=== PATIENT | female | born 1985 | race American Indian/Alaskan Native ===

== ENCOUNTER 2020-09-01 09:14 | Emergency (ER) | payer MEDICAID ==
[2020-09-01 09:25] VITALS: BP 101/61
--- NOTE | 2020-09-01 09:31 | Emergency Department Report ---
ED Abdominal Pain HPI - General Chief Complaint: Abdominal Pain Stated Complaint: ABD PAIN/EAR IRRITATION Time Seen by Provider: 09/01/20 09:28 Source: patient Mode of arrival: Ambulatory Limitations: No Limitations - History of Present Illness Initial Comments: 35-year-old female presents to the ER today with complaints of right ear pain, low abdominal pain and vaginal discharge. Patient states that she has been having intermittent low abdominal pain radiating into her lower back for the past 2 months. She states that she has never had this abdominal pain evaluated either in the ER or by her primary care doctor or [facility] since it started because she has not had any insurance. She states that the real reason she is here is because she has been having vaginal discharge for 4 days with abdominal pain in the right ear pain. She states that she is had the same sexual partner but unprotected sexual intercourse. Her last menstrual cycle was July 2020. She states that she is not sure if she could be , and has not taken a home test. She is not on any control. She denies any nausea, vomiting or any bowel changes. She denies any UTI symptoms. She is status post C-sections in the past as well as ovarian cyst removal. She states the right ear pain started about 2 days ago. She reports rhinorrhea nasal congestion but denies any drainage from the ear. She denies any fever or chills. She denies any ear injury. MD Complaint: abdominal pain, other (Right ear pain; vaginal discharge) - Related Data Previous Rx's Medication Instructions Recorded Last Taken Type Azithromycin [Zithromax Z-CAMMY] 250 mg PO DAILY #1 pack 09/01/20 Unknown Rx DOXYCYCLINE Hyclate [Vibramycin 100 mg PO Q12HR #14 capsule 09/01/20 Unknown Rx CAP] Fluconazole [Diflucan TAB] 200 mg PO QDAY #1 tablet 09/01/20 Unknown Rx metroNIDAZOLE [metroNIDAZOLE 1 applicatio VG QHS 5 Days #5 09/01/20 Unknown Rx VAGINAL 0.75% gel] gel.w.appl Allergies Allergy/AdvReac Type Severity Reaction Status Date / Time Penicillins Allergy Hives Verified 09/01/20 09:21 ED Review of Systems ROS: Stated complaint: ABD PAIN/EAR IRRITATION Other details as noted in HPI Comment: All other systems reviewed and negative Constitutional: denies: chills, fever ENT: denies: ear pain, throat pain, dental pain, hearing loss, epistaxis, congestion Respiratory: denies: cough, shortness of breath, SOB with exertion, SOB at rest, wheezing Cardiovascular: denies: chest pain, palpitations, edema, syncope, paroxysmal nocturnal dyspnea Gastrointestinal: abdominal pain. denies: nausea, vomiting, diarrhea, constipation, hematemesis, melena, hematochezia Genitourinary: denies: urgency, dysuria, frequency, hematuria, discharge, abnormal menses, dyspareunia Musculoskeletal: denies: back pain, joint swelling, arthralgia Skin: denies: rash, lesions, change in color, change in hair/nails, pruritus Neurological: denies: headache, weakness, numbness, paresthesias, confusion, abnormal gait, vertigo Psychiatric: denies: anxiety, depression, auditory hallucinations, visual hallucinations, homicidal thoughts Hematological/Lymphatic: denies: easy bleeding, easy bruising, swollen glands ED Past Medical Hx - Past Medical History Additional medical history: LUPUS - Surgical History Past Surgical History?: No - Social History Smoking Status: Never Smoker Substance Use Type: None - Medications Home Medications: Home Medications Medication Instructions Recorded Confirmed Last Taken Type Azithromycin [Zithromax Z-CAMMY] 250 mg PO DAILY #1 pack 09/01/20 Unknown Rx DOXYCYCLINE Hyclate [Vibramycin 100 mg PO Q12HR #14 capsule 09/01/20 Unknown Rx CAP] Fluconazole [Diflucan TAB] 200 mg PO QDAY #1 tablet 09/01/20 Unknown Rx metroNIDAZOLE [metroNIDAZOLE 1 applicatio VG QHS 5 Days #5 09/01/20 Unknown Rx VAGINAL 0.75% gel] gel.w.appl ED Physical Exam - General Limitations: No Limitations General appearance: alert, in no apparent distress - Head Head exam: Present: atraumatic, normocephalic, normal inspection - Eye Eye exam: Present: normal appearance, PERRL, EOMI Pupils: Present: normal accommodation - ENT ENT exam: Present: mucous membranes moist - Expanded ENT Exam Expanded TM/Canal exam: Erythema: Right TM, Effusion: Right TM Mouth exam: Present: normal external inspection Throat exam: Positive: normal inspection - Neck Neck exam: Present: normal inspection, full ROM, lymphadenopathy (Anterior cervical) - Respiratory Respiratory exam: Present: normal lung sounds bilaterally. Absent: respiratory distress - Cardiovascular Cardiovascular Exam: Present: regular rate, normal rhythm, normal heart sounds - GI/Abdominal GI/Abdominal exam: Present: soft. Absent: distended, tenderness, guarding, rebound - External exam: Present: normal external exam Speculum exam: Present: vaginal discharge (mod yellow d/c). Absent: erythema, vaginal bleeding, foreign body, tissue, laceration Bi-manual exam: Present: adnexal tenderness (right and left). Absent: cervical motion tendernes, adnexal mass, uterine enlargement - Extremities Exam Extremities exam: Present: normal inspection - Neurological Exam Neurological exam: Present: alert, oriented X3, CN II-XII intact, normal gait - Psychiatric Psychiatric exam: Present: normal affect, normal mood - Skin Skin exam: Present: intact ED Course Vital Signs 09/01/20 09/01/20 09:24 11:56 Temperature 98.9 F Pulse Rate 69 Respiratory 18 20 Rate Blood Pressure 101/61 O2 Sat by Pulse 100 Oximetry ED Medical Decision Making - Lab Data Result diagrams: 09/01/20 10:29 09/01/20 10:29 - Medical Decision Making wet prep positive for BV, UA appear more contaminated than true UTI, HCG negative, CBC/CMP unremarkable. GC pending but she will be treated prophylactically with Rocephin and doxy. Pt currently on her phone talking to family, she is fully dressed and sitting on edge of the bed ready to go. She is well-appearing, nontoxic and does not appear to be in any acute distress. Her exam is unremarkable and benign; in particular, there is no discomfort at McBurney's point and there is no pulsatile mass. Her history, exam, diagnostic testing and current condition do not suggest acute appendicitis, bowel obstruction, acute cholecystitis, bowel perforation, major GI bleed, severe diverticulitis, abdominal aortic aneurysm, mesenteric ischemia, volvulus, PID, ovarian torsion, sepsis or other significant pathology to warrant further testing, continued ED treatment, admission or surgical evaluation at this point. Her patient's vital signs have been stable. Discussed lab results, suspected d iagnosis and treatment plan with patient. The patient's condition is stable and appropriate for discharge from the emergency department. Recommend follow-up with primary care doctor and [facility]. Patient expressed understanding of instructions and agree with plan. She was stable at time of discharge Critical care attestation.: If time is entered above; I have spent that time in minutes in the direct care of this critically ill patient, excluding procedure time. ED Disposition Clinical Impression: Bacterial vaginosis, Chronic bilateral lower abdominal pain, Otitis media of right ear Disposition: TO HOME OR SELFCARE Is pt being admited?: No Does the pt Need Aspirin: No Condition: Stable Instructions: Otitis Media, Adult, [id number], Bacterial Vaginosis, [id number], Abdominal Pain, Adult, [id number], Bacterial Vaginosis (ED), Abdominal Pain (ED) Additional Instructions: Take the doxycycline and the amoxicillin as prescribed. Use the metrogel as prescribed. Take the diflucan after completion of antibiotics. Recommend no sexual activity for at least 7 days. Your partner should be tested and treated as well. Follow up with OBGYN listed on your discharge in structions. Return to ED if symptoms changes or worsens in anyway. Prescriptions: metroNIDAZOLE [metroNIDAZOLE VAGINAL 0.75% gel] 1 applicatio VG QHS 5 Days #5 gel.w.appl Fluconazole [Diflucan TAB] 200 mg PO QDAY #1 tablet DOXYCYCLINE Hyclate [Vibramycin CAP] 100 mg PO Q12HR #14 capsule Azithromycin [Zithromax Z-CAMMY] 250 mg PO DAILY #1 pack Referrals: VANESSA VELAZQUEZ MD [Staff Physician] - 3-5 Days [facility] [Provider Group] - 3-5 Days Forms: STI Treatment and Prevention Time of Disposition: 12:24
[2020-09-01 10:49] LABS: Basophils % (Auto) 0.5 % (0.0-1.8); Eosinophils % (Auto) 0.4 % (0.0-4.3); Hematocrit 37.6 % (30.3-42.9); Hemoglobin 12.4 gm/dl (10.1-14.3); Lymphocytes # (Auto) 1.7 K/mm3 (1.2-5.4); Lymphocytes % (Auto) 24.7 % (13.4-35.0); Mean Corpuscular HGB Conc 33 % (30-34); Mean Corpuscular Volume 95 fl (79-97); Monocytes # (Auto) 0.6 K/mm3 (0.0-0.8); Monocytes % (Auto) 9.3 % (0.0-7.3); Platelet Count 232 K/mm3 (140-440); Red Blood Count 3.97 M/mm3 (3.65-5.03); Red Cell Distribution Width 13.9 % (13.2-15.2)
[2020-09-01] MEDS ORDERED: ACETAMINOPHEN 500 MG TAB PO ONE (11:06)
[2020-09-01 11:12] LABS: Albumin 3.7 g/dL (3.9-5); BUN/Creatinine Ratio 5; Blood Urea Nitrogen 4 mg/dL (7-17); Calcium 8.9 mg/dL (8.4-10.2); Hemolysis Index 4
[2020-09-01 11:13] LABS: Alanine Aminotransferase < 5 units/L (7-56)
[2020-09-01] MEDS ORDERED: LIDOCAINE-MPF (1%) 10 MG/1 ML VIAL 5 ML INFILTRATI ONE (11:25)
[2020-09-01 11:27] LABS: Bacteria,Urine 2+ /HPF (Negative); Bilirubin,Urine NEG (Negative); Blood,Urine NEG (Negative); Color,Urine Yellow (Yellow); Hyaline Casts,Urine 1 /LPF; Mucus,Urine FEW /HPF; Protein,Urine <15 mg/dL mg/dL (Negative); Urobilinogen,Urine < 2.0 mg/dL (<2.0)
== END 2020-09-01 12:35 | disposition home or self-care (01) ==
LOC: ED 09:14
DX: N76.0 Acute vaginitis (principal); B96.89 Other specified bacterial agents as the cause of diseases classified elsewhere; R10.30 Lower abdominal pain, unspecified; H66.91 Otitis media, unspecified, right ear; Z79.2 Long term (current) use of antibiotics; Z79.899 Other long term (current) drug therapy; Z88.0 Allergy status to penicillin
CPT/HCPCS: 36415; 80053; 81001; 83690; 84703; 85025; 87076; 87086; 87186; 87210; 87591; 96372; 99284; J0696